=== PATIENT | female | born 1975 | race Caucasian/White ===

== ENCOUNTER 2017-05-28 07:46 | Outpatient (CLI) | payer MEDICAID ==
[2017-05-29 07:56] LABS: TEST RESULT REPORT (())
[2017-05-31 17:42] LABS: TEST RESULT REPORT (())
== END 2017-05-28 07:47 | disposition home or self-care (01) ==
LOC: LAB.N 07:46
PROVIDERS: ATTEND Physician Assistant
DX: Z13.89 Encounter for screening for other disorder (principal)
CPT/HCPCS: 36415; 81599; 86735; 86762; 86765